=== PATIENT | female | born 1995 ===

== ENCOUNTER 2020-05-11 14:04 | Emergency (ER) | payer SELFPAY ==
[2020-05-11 14:14] VITALS: BP 95/62; PULSE 82; RESP 16; TEMP 37.1; O2SAT 100
--- NOTE | 2020-05-11 14:15 | ED.UPPEXIN ---
HPI - Extremity Injury (Upper) General Chief Complaint: Extremity Problem,Nontraumatic Stated Complaint: right elbow swollen Time Seen by Provider: 05/11/20 14:15 Source: patient and RN notes reviewed History of Present Illness HPI narrative: Patient is a 25-year-old female who presents the urgent care with complaints of right elbow pain. Patient states that started early this morning when she woke up and she has not taken anything for the pain. Patient denies of any known injury. 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 Patient states some of the pain does radiate down to her forearm and she is right-hand dominant. No other acute complaints. No acute distress noted. Patient read the plan of care. Related Data Allergies Allergy/AdvReac Type Severity Reaction Status Date / Time No Known Allergies Allergy Verified 05/11/20 14:28 Review of Systems Review of Systems: Narrative: CONSTITUTIONAL: Denies fever, chills, or sweats. EYES: Denies visual changes, redness, or discharge. ENT: Denies rhinorrhea, congestion, sore throat, or otalgia. CARDIOVASCULAR: Denies chest pain, palpitations, or edema. RESPIRATORY: Denies cough or dyspnea. GASTROINTESTINAL: Denies abdominal pain, nausea, vomiting, or diarrhea. GENITOURINARY: Denies dysuria or hematuria. SKIN: Denies rash or itching. MUSCULOSKELETAL: Reports of right elbow pain radiating down to the right forearm NEUROLOGIC: Denies headache, numbness, or weakness. All other systems reviewed are negative, except as documented in HPI. PMFSH Comments At the time of my signature, I reviewed and agree with the nursing past medical, surgical, social, and family history. There is no relevant family history pertinent to the patient complaint. Exam Narrative: Exam Narrative: GENERAL: This is a well-nourished, well-developed patient, in no apparent distress. HEAD: normocephalic, atraumatic. EYES: PERRL. Sclera clear/white. Vision is grossly intact. EARS: External ears normal NOSE: External nose normal with no obvious nasal discharge, nares without redness, no rhinorrhea. THROAT: Mucous membranes moist NECK: Neck supple SKIN: warm, intact with no suspicious lesions or rash, good texture and turgor. NEURO: awake, alert, and oriented to person, place and time. There were no obvious focal neurologic abnormalities. EXTREMITIES: No obvious edema, erythema, ecchymosis or deformity noted to the right elbow. Mild tenderness to the right elbow, extending into the dorsal forearm. Range of motion within normal limits however exacerbates pain Course Vital Signs Vital signs: Vital Signs Temperature 98.7 F 05/11/20 14:14 Pulse Rate 82 05/11/20 14:14 Respiratory Rate 16 05/11/20 14:14 Blood Pressure 95/62 L 05/11/20 14:14 Pulse Oximetry 100 05/11/20 14:14 Temperature 98.7 F 05/11/20 14:14 Pulse Rate 82 05/11/20 14:14 Respiratory Rate 16 05/11/20 14:14 Blood Pressure 95/62 L 05/11/20 14:14 Pulse Oximetry 100 05/11/20 14:14 Reviewed MDM - Extremity Injury (Upper) MDM Narrative Medical decision making narrative: Educated the patient on tendinitis. Advised her to use Tylenol/ibuprofen as needed for pain and make sure to rest the elbow, especially after cleaning. Patient is aware that repetitive constant motion is going to exacerbate her pain. Advised her to complete oral steroid regimen as prescribed and use ice as needed. May also obtain [id number] tendinitis forearm strap to release some of the pain. Follow-up with your PCP within 2 to 5 days or for worsening symptoms or failure to improve. Differential Diagnosis Differential diagnosis: Likely fracture of humerus and other (Bursitis, elbow fracture) Critical Care Time Critical Care Time Critical Care Time: No Discharge Plan Discharge Clinical Impression: Right elbow tendinitis Patient Disposition: Home, Self-Care Condition: Stable Instructions: Antibiotic Form, Tendi
== END 2020-05-11 14:30 | disposition home or self-care (01) ==
PROVIDERS: Emergency Provider Nurse Practitioner Family
DX: M77.9 Enthesopathy, unspecified (principal)
CPT/HCPCS: 99213; G0463